=== PATIENT | female | born 1960 | race African-American/Black ===

== ENCOUNTER 2016-07-24 03:52 | Emergency (ER) | payer MEDICAID ==
[2016-07-24] MEDS ORDERED: DUONEB INH ONE ×3 (05:24→06:20)
[2016-07-24] MEDS ORDERED: METHYLPRED SOD SUCC 125 MG/2 ML VIAL ONE (06:13)
== END 2016-07-24 08:04 | disposition home or self-care (01) ==
LOC: ER 03:52
DX: J18.9 Pneumonia, unspecified organism (principal); J44.9 Chronic obstructive pulmonary disease, unspecified
CPT/HCPCS: 36415; 71020; 80053; 83735; 83880; 85025; 87804; 94640; 96365; 96366; 96375